=== PATIENT | female | born 1940 | race Caucasian/White ===

== ENCOUNTER → 2019-09-13 | Outpatient (CLI) | payer BC | END | disposition home or self-care (01) | LOC: CVU 10:24 | PROVIDERS: ATTEND Internal Medicine Cardiovascular Disease | DX: I65.23 Occlusion and stenosis of bilateral carotid arteries (principal); Z82.49 Family history of ischemic heart disease and other diseases of the circulatory system | CPT/HCPCS: 93880 ==

== ENCOUNTER 2019-09-21 10:06 | Outpatient (CLI) | payer BC ==
[~2019-09-21 10:06] MED LIST: ACET-1600 PO; ATOR20TA37 PO; BIMA2.5D EACHEYE; DIPH25CA61 PO; DOCU-131 PO; HYDR-3237 PO; LEVO100T5 PO; LORA10TA75 PO; ONDA4TAB13 SL
== END 2019-09-22 17:25 | disposition home or self-care (01) ==
LOC: RAD 10:06
PROVIDERS: ATTEND Urology
DX: N20.0 Calculus of kidney (principal); K80.20 Calculus of gallbladder without cholecystitis without obstruction; M41.86 Other forms of scoliosis, lumbar region; K82.8 Other specified diseases of gallbladder; N20.9 Urinary calculus, unspecified
CPT/HCPCS: 74018; 76000

== ENCOUNTER 2019-09-22 12:20 | Day surgery (SDC) | payer BC ==
[~2019-09-22] VITALS: Ht 160 cm; Wt 76.0 kg
[2019-09-22] MEDS ORDERED: LACTATED RINGERS 1,000 ML IV SCH (12:34)
[2019-09-22 12:49] VITALS: BP 166/78
[2019-09-22] MEDS ORDERED: FENTANYL PF 250 MCG/5ML ONE (14:10)
[2019-09-22] MEDS ORDERED: MIDAZOLAM 1 MG/ML, 2ML ONE (14:10)
[2019-09-22] MEDS ORDERED: ONDANSETRON 2MG/ML, 2ML ONE (14:13)
[2019-09-22] MEDS ORDERED: PROPOFOL 10 MG/ML, 20ML ONE (14:13)
[2019-09-22] MEDS ORDERED: DEXAMETHASONE 4 MG/ML, 1ML ONE (14:13)
[2019-09-22] MEDS ORDERED: ONDANSETRON 2MG/ML, 2ML IV PRN (14:30)
[2019-09-22] MEDS ORDERED: EPHEDRINE 50 MG/ML, 1ML ONE (14:30)
[2019-09-22] MEDS ORDERED: MEPERIDINE/PF 25MG/ML,1ML IVPush PRN (14:30)
[2019-09-22] MEDS ORDERED: FENTANYL PF 100 MCG/2ML IV PRN (14:30)
[2019-09-22] MEDS ORDERED: ACETAMINOPHEN 325 MG TABLET PO PRN (14:30)
[2019-09-22] MEDS ORDERED: OXYcodone 5 MG/5 ML ORAL.SOL UDC PO PRN (14:30)
[2019-09-22] MEDS ORDERED: HYDROmorphone 2 MG/ML, 1ML IVPush PRN (14:30)
[2019-09-22] MEDS ORDERED: hydrALAzine 20 MG/ML, 1ML IV PRN (14:30)
[2019-09-22] MEDS ORDERED: LABETALOL 5MG/ML, 20ML IV PRN (14:30)
[2019-09-22] MEDS ORDERED: PROMETHAZINE 25 MG/ML, 1ML IV PRN (14:30)
[2019-09-22] MEDS ORDERED: CEFAZOLIN 1,000 MG ONE (14:34)
[2019-09-22] MEDS ORDERED: KETOROLAC 30 MG/1 ML ONE (14:46)
== END 2019-09-22 17:00 | disposition home or self-care (01) ==
LOC: OUT 12:20
PROVIDERS: ATTEND Urology
DX: N20.1 Calculus of ureter (principal); N13.8 Other obstructive and reflux uropathy; E11.9 Type 2 diabetes mellitus without complications; Z79.890 Hormone replacement therapy; Z79.899 Other long term (current) drug therapy; Z88.0 Allergy status to penicillin; Z88.8 Allergy status to other drugs, medicaments and biological substances; Z82.49 Family history of ischemic heart disease and other diseases of the circulatory system
CPT/HCPCS: 52356; 74018; 76000; 93005; C1758; C1769; C2617; J0690; J1100; J1885; J2250; J2405; J2704; J3010; J7120